=== PATIENT | male | born 1965 | race Caucasian/White ===

== ENCOUNTER 2017-07-04 14:34 | Emergency (ER) | payer MEDICARE, OTHER, MEDICAID ==
[2017-07-04 16:06] LABS: BASO # 0.1 10^3/uL (0.0-0.2); BASO % 0.5 % (0.0-1.0); EOS # 0.1 10^3/uL (0.0-0.50); EOS % 0.9 % (0.0-3.0); HEMATOCRIT 45.6 % (42.0-52.0); HEMOGLOBIN 15.7 g/dl (13.5-17.5); IMMATURE GRANULOCYTE % 0.2 % (0-3.0); LYMPH # 2.3 10^3/uL (1.5-4.5); LYMPH % 21.9 % (24.0-44.0); MEAN CORPUSCULAR HEMOGLOBIN 31.8 pg (27.0-33.0); MEAN CORPUSCULAR HGB CONC 34.4 g/dl (32.0-36.5); MEAN CORPUSCULAR VOLUME 92.3 fl (80.0-96.0); MONO # 0.8 10^3/uL (0.0-0.8); MONO % 7.7 % (0.0-5.0); NEUTROPHILS # 7.1 10^3/uL (1.8-7.7); NEUTROPHILS % 68.8 % (36.0-66.0); PLATELET COUNT, AUTOMATED 239 10^3/uL (150-450); RED BLOOD COUNT 4.94 10^6/uL (4.30-6.10); RED CELL DISTRIBUTION WIDTH 12.6 % (11.5-14.5); WHITE BLOOD COUNT 10.3 10^3/uL (4.0-10.0)
[2017-07-04] MEDS: KETOROLAC 30 MG/ML VIAL (J1885) IV ×3 (16:16)
[2017-07-04] MEDS: NS 1,000 ML IV ×3 (16:16)
[2017-07-04] MEDS: METOCLOPRAMIDE INJ 10MG/2ML VIAL (J2765) IV ×3 (16:16)
[2017-07-04] MEDS: diphenhydrAMINE INJ 50MG/ML VIAL (J1200) IV ×3 (16:16)
[2017-07-04 16:35] LABS: ANION GAP 6 MEQ/L (8-16); BLOOD UREA NITROGEN 10 MG/DL (7-18); CALCIUM LEVEL 9.4 MG/DL (8.5-10.1); CARBON DIOXIDE LEVEL 31 MEQ/L (21-32); CHLORIDE LEVEL 106 MEQ/L (98-107); CREATININE FOR GFR 1.05 MG/DL (0.70-1.30); GLOMERULAR FILTRATION RATE > 60.0 (>56); GLUCOSE, FASTING 94 MG/DL (70-100); POTASSIUM SERUM 4.7 MEQ/L (3.5-5.1); SODIUM LEVEL 143 MEQ/L (136-145); T UPTAKE 32 % (33-40); THYROID STIMULATING HORMONE 0.314 uIU/ML (0.358-3.740); THYROXINE (T4) 6.2 UG/DL (4.5-12.0)
== END 2017-07-04 18:13 | disposition home or self-care (01) ==
LOC: M ED 14:34
DX: R51 Headache (principal); F17.210 Nicotine dependence, cigarettes, uncomplicated; Z88.8 Allergy status to other drugs, medicaments and biological substances; Z79.899 Other long term (current) drug therapy
CPT/HCPCS: J1200

== ENCOUNTER → 2018-09-06 | Outpatient (REF) | payer MEDICARE, MEDICAID ==
[~2018-09-06] MED LIST: AMBI10TA OR; AMBI10TA PO; CELE40TA; CELE40TA OR; CLON1TAB8 PO; Celexa PO; KETO10TAB PO; KLON1TAB OR; OMEP20CA3; REGL10TA6 PO; REME45TA PO; SERO200T OR; SERO300T20 OR; SERO400T OR; TRAZ50TA; ZIPR80CAP OR; ZOLO50TA OR; ZYPR5TAB OR
[2018-09-06 13:58] LABS: ALBUMIN 3.5 GM/DL (3.2-5.2); ALT/SGPT 36 U/L (12-78); BILIRUBIN,TOTAL 0.3 MG/DL (0.2-1.0); BLOOD UREA NITROGEN 6 MG/DL (7-18); CARBON DIOXIDE LEVEL 26 MEQ/L (21-32); CHLORIDE LEVEL 110 MEQ/L (98-107); CHOLESTEROL LEVEL 177 MG/DL (<200); CHOLESTEROL RISK RATIO 4.425 (<5); CREATININE FOR GFR 1.02 MG/DL (0.70-1.30); GLOMERULAR FILTRATION RATE > 60.0 (>56); GLUCOSE, FASTING 106 MG/DL (70-100); HDL CHOLESTEROL 40 MG/DL (>40); LDL CHOLESTEROL 99 MG/DL (<100); NON-HDL-C 137 MG/DL; POTASSIUM SERUM 4.4 MEQ/L (3.5-5.1); SODIUM LEVEL 142 MEQ/L (136-145); THYROID STIMULATING HORMONE 0.799 uIU/ML (0.358-3.740); TOTAL PROTEIN 7.4 GM/DL (6.4-8.2); TRIGLYCERIDES LEVEL 190 MG/DL (<150)
== END ==
LOC: M LAB REF 13:05
PROVIDERS: ATTEND Family Medicine Addiction Medicine
DX: Z13.1 Encounter for screening for diabetes mellitus (principal); Z79.899 Other long term (current) drug therapy

== ENCOUNTER → 2018-10-12 | Outpatient (REF) | payer MEDICARE, MEDICAID ==
[~2018-10-12] MED LIST changes: -OMEP20CA3; +OMEP20CA4
[2018-10-12 18:51] LABS: APPEARANCE, URINE CLEAR (CLEAR); BACTERIA, URINE AUTO NEGATIVE (NEGATIVE); BILIRUBIN, URINE AUTO NEGATIVE (NEGATIVE); BLOOD, URINE BLOOD 1+ (NEGATIVE); COLOR, URINE YELLOW (YELLOW); GLUCOSE, URINE (UA) AUTO NEGATIVE (NEGATIVE); KETONE, URINE AUTO NEGATIVE (NEGATIVE); LEUKOCYTE ESTERASE, URINE AUTO 2+ (NEGATIVE); NITRITE, URINE AUTO NEGATIVE (NEGATIVE); PROTEIN, URINE AUTO NEGATIVE (NEGATIVE); RBC, URINE AUTO 4 /HPF (0-3); SQUAMOUS EPITHELIAL CELL UR AU 0 /HPF (0-6); UROBILINOGEN, URINE AUTO 0.2 mg/dL (0.0-2.0); WBC, URINE AUTO 4 /HPF (0-3)
== END ==
LOC: M LAB REF 16:30
PROVIDERS: ATTEND Family Medicine Addiction Medicine
DX: R33.8 Other retention of urine (principal)

== ENCOUNTER → 2018-12-09 | Outpatient (REF) | payer MEDICARE, MEDICAID ==
[2018-12-09 19:08] LABS: APPEARANCE, URINE CLEAR (CLEAR); BACTERIA, URINE AUTO NEGATIVE (NEGATIVE); BILIRUBIN, URINE AUTO NEGATIVE (NEGATIVE); BLOOD, URINE BLOOD 1+ (NEGATIVE); COLOR, URINE STRAW (YELLOW); GLUCOSE, URINE (UA) AUTO NEGATIVE (NEGATIVE); KETONE, URINE AUTO NEGATIVE (NEGATIVE); LEUKOCYTE ESTERASE, URINE AUTO NEGATIVE (NEGATIVE); NITRITE, URINE AUTO NEGATIVE (NEGATIVE); PROTEIN, URINE AUTO NEGATIVE (NEGATIVE); RBC, URINE AUTO 2 /HPF (0-3); SPECIFIC GRAVITY URINE AUTO 1.008 (1.002-1.035); SQUAMOUS EPITHELIAL CELL UR AU 0 /HPF (0-6); UROBILINOGEN, URINE AUTO 0.2 mg/dL (0.0-2.0); WBC, URINE AUTO 2 /HPF (0-3)
== END ==
LOC: M LAB REF 18:29
PROVIDERS: ATTEND Family Medicine Addiction Medicine
DX: R31.29 Other microscopic hematuria (principal)

== ENCOUNTER → 2018-12-23 | Outpatient (CLI) | payer MEDICARE, MEDICAID ==
--- NOTE | 2018-12-23 15:39 | REP ---
CT chest without contrast: Low-dose screening exam. History: Nicotine dependence. No comparison chest imaging. CT findings: There are multiple small posteriorly distributed pleural-based subcentimeter nodules consistent with pleural plaques bilaterally. The largest of these measures 5 mm. There is a 5.6 mm noncalcified pleural based nodule in the right middle lobe. There is a 4 mm ground-glass opacity in the right middle lobe. There is a peripheral 3 mm nodule in the right middle lobe. There is a 3 mm noncalcified nodule in the left lower lobe. No other nodules are appreciated. No infiltrate or mass lesion is observed. Impression: Lung RADS category II benign findings. Repeat screening chest CT study recommended 1 year. Electronically Signed by Ellis Garcia MD 12/23/2018 03:49 P
== END ==
LOC: M RAD 13:47
PROVIDERS: ATTEND Family Medicine Addiction Medicine
DX: Z12.2 Encounter for screening for malignant neoplasm of respiratory organs (principal); Z87.891 Personal history of nicotine dependence; R91.8 Other nonspecific abnormal finding of lung field

== ENCOUNTER → 2019-02-02 | Outpatient (CLI) | payer MEDICARE, MEDICAID ==
[2019-02-02 10:31] LABS: HEMATOCRIT 47.1 % (42.0-52.0); HEMOGLOBIN 15.8 g/dl (13.5-17.5); MEAN CORPUSCULAR HGB CONC 33.5 g/dl (32.0-36.5); MEAN CORPUSCULAR VOLUME 95.5 fl (80.0-96.0); PLATELET COUNT, AUTOMATED 246 10^3/uL (150-450); RED BLOOD COUNT 4.93 10^6/uL (4.30-6.10); WHITE BLOOD COUNT 17.3 10^3/uL (4.0-10.0)
[2019-02-02 10:55] LABS: AMPHETAMINES URINE REFLEX NEGATIVE (NEGATIVE); BARBITURATES URINE REFLEX NEGATIVE (NEGATIVE); BENZODIAZEPINES URINE REFLEX NEGATIVE (NEGATIVE); CANNABINOIDS URINE REFLEX NEGATIVE (NEGATIVE); COCAINE METABOLITE URINE REFLE NEGATIVE (NEGATIVE); METHADONE URINE REFLEX NEGATIVE (NEGATIVE); OPIATES URINE REFLEX NEGATIVE (NEGATIVE); PHENCYCLIDINE URINE REFLEX NEGATIVE (NEGATIVE)
[2019-02-02 11:03] LABS: ALBUMIN 3.8 GM/DL (3.2-5.2); ALT/SGPT 51 U/L (12-78); BILIRUBIN,TOTAL 0.3 MG/DL (0.2-1.0); BLOOD UREA NITROGEN 9 MG/DL (7-18); CALCIUM LEVEL 9.2 MG/DL (8.5-10.1); CARBON DIOXIDE LEVEL 23 MEQ/L (21-32); CHLORIDE LEVEL 109 MEQ/L (98-107); CHOLESTEROL LEVEL 231 MG/DL (<200); CREATININE FOR GFR 1.06 MG/DL (0.70-1.30); FREE T4 0.71 NG/DL (0.76-1.46); GLOMERULAR FILTRATION RATE > 60.0 (>56); GLUCOSE, FASTING 107 MG/DL (70-100); HDL CHOLESTEROL 42 MG/DL (>40); LDL CHOLESTEROL 146 MG/DL (<100); NON-HDL-C 189 MG/DL; POTASSIUM SERUM 4.1 MEQ/L (3.5-5.1); SODIUM LEVEL 142 MEQ/L (136-145); TOTAL PROTEIN 7.7 GM/DL (6.4-8.2); TRIGLYCERIDES LEVEL 216 MG/DL (<150)
[2019-02-02 11:05] LABS: PROLACTIN 20.1 NG/ML (2.1-17.7)
== END ==
LOC: M LAB 08:44
PROVIDERS: ATTEND Nurse Practitioner Psychiatric/Mental Health
DX: F20.9 Schizophrenia, unspecified (principal)
CPT/HCPCS: 36415; 80053; 80061; 80307; 83036; 84146; 84439; 84443; 85027; G0480

== ENCOUNTER → 2019-08-11 | Outpatient (REF) | payer MEDICARE, MEDICAID ==
[~2019-08-11] MED LIST changes: +OMEP1CAP73; -OMEP20CA4
[2019-08-11 14:04] LABS: BASO # 0.1 10^3/uL (0.0-0.2); BASO % 0.3 % (0.0-1.0); EOS # 0.2 10^3/uL (0.0-0.5); EOS % 1.2 % (0.0-3.0); HEMATOCRIT 48.8 % (42.0-52.0); HEMOGLOBIN 16.2 g/dl (13.5-17.5); LYMPH # 3.6 10^3/uL (1.5-5.0); LYMPH % 22.4 % (24.0-44.0); MEAN CORPUSCULAR HEMOGLOBIN 31.3 pg (27.0-33.0); MEAN CORPUSCULAR HGB CONC 33.2 g/dl (32.0-36.5); MEAN CORPUSCULAR VOLUME 94.2 fl (80.0-96.0); MONO # 1.5 10^3/uL (0.0-0.8); MONO % 9.1 % (0.0-5.0); NEUTROPHILS # 10.7 10^3/uL (1.5-8.5); NEUTROPHILS % 66.1 % (36.0-66.0); PLATELET COUNT, AUTOMATED 265 10^3/uL (150-450); RED BLOOD COUNT 5.18 10^6/uL (4.30-6.10); WHITE BLOOD COUNT 16.1 10^3/uL (4.0-10.0)
[2019-08-11 14:16] LABS: ALBUMIN 3.9 GM/DL (3.2-5.2); ALT/SGPT 29 U/L (12-78); BILIRUBIN,TOTAL 0.5 MG/DL (0.2-1.0); BLOOD UREA NITROGEN 12 MG/DL (7-18); CALCIUM LEVEL 9.1 MG/DL (8.5-10.1); CARBON DIOXIDE LEVEL 25 MEQ/L (21-32); CHLORIDE LEVEL 105 MEQ/L (98-107); CHOLESTEROL LEVEL 226 MG/DL (<200); CREATININE FOR GFR 0.86 MG/DL (0.70-1.30); FOLATE 5.3 NG/ML; FREE T4 1.02 NG/DL (0.76-1.46); GLOMERULAR FILTRATION RATE > 60.0 (>56); GLUCOSE, FASTING 102 MG/DL (70-100); HDL CHOLESTEROL 31 MG/DL (>40); LDL CHOLESTEROL 158 MG/DL (<100); NON-HDL-C 195 MG/DL; POTASSIUM SERUM 4.2 MEQ/L (3.5-5.1); SODIUM LEVEL 136 MEQ/L (136-145); THYROID STIMULATING HORMONE 0.713 uIU/ML (0.358-3.740); TOTAL 25(OH) VITAMIN D 24.6 NG/ML (30.0-100.0); TOTAL PROTEIN 7.9 GM/DL (6.4-8.2); TRIGLYCERIDES LEVEL 184 MG/DL (<150); VITAMIN B12 LEVEL 581 PG/ML
== END ==
LOC: M LAB REF 12:50
PROVIDERS: ATTEND Nurse Practitioner Family
DX: R21 Rash and other nonspecific skin eruption (principal); R12 Heartburn; I10 Essential (primary) hypertension; R73.9 Hyperglycemia, unspecified; Z13.9 Encounter for screening, unspecified; F17.200 Nicotine dependence, unspecified, uncomplicated

== ENCOUNTER → 2019-10-31 | Outpatient (REF) | payer MEDICARE, MEDICAID ==
[2019-12-17 23:07] LABS: BASO # 0.1 10^3/uL (0.0-0.2); BASO % 0.6 % (0.0-1.0); EOS # 0.2 10^3/uL (0.0-0.5); EOS % 1.7 % (0.0-3.0); HEMATOCRIT 47.7 % (42.0-52.0); HEMOGLOBIN 16.3 g/dl (13.5-17.5); LYMPH # 3.8 10^3/uL (1.5-5.0); LYMPH % 28.1 % (24.0-44.0); MEAN CORPUSCULAR HEMOGLOBIN 32.1 pg (27.0-33.0); MEAN CORPUSCULAR HGB CONC 34.2 g/dl (32.0-36.5); MEAN CORPUSCULAR VOLUME 93.9 fl (80.0-96.0); MONO # 1.1 10^3/uL (0.0-0.8); MONO % 8.5 % (0.0-5.0); NEUTROPHILS # 8.1 10^3/uL (1.5-8.5); NEUTROPHILS % 60.5 % (36.0-66.0); PLATELET COUNT, AUTOMATED 269 10^3/uL (150-450); RED BLOOD COUNT 5.08 10^6/uL (4.30-6.10); WHITE BLOOD COUNT 13.4 10^3/uL (4.0-10.0)
[2019-12-26 21:25] LABS: HEMOGLOBIN A1c 5.8 %
[2019-12-27 00:42] LABS: ALBUMIN 3.9 GM/DL (3.2-5.2); ALT/SGPT 33 U/L (12-78); BILIRUBIN,TOTAL 0.3 MG/DL (0.2-1.0); BLOOD UREA NITROGEN 9 MG/DL (7-18); CALCIUM LEVEL 9.2 MG/DL (8.5-10.1); CARBON DIOXIDE LEVEL 26 MEQ/L (21-32); CHLORIDE LEVEL 107 MEQ/L (98-107); CHOLESTEROL LEVEL 193 MG/DL (<200); CHOLESTEROL RISK RATIO 5.361 (<5); CREATININE FOR GFR 0.97 MG/DL (0.70-1.30); GLOMERULAR FILTRATION RATE > 60.0 (>56); GLUCOSE, FASTING 105 MG/DL (70-100); HDL CHOLESTEROL 36 MG/DL (>40); LDL CHOLESTEROL 117 MG/DL (<100); NON-HDL-C 157 MG/DL; POTASSIUM SERUM 4.1 MEQ/L (3.5-5.1); SODIUM LEVEL 138 MEQ/L (136-145); TOTAL PROTEIN 7.6 GM/DL (6.4-8.2); TRIGLYCERIDES LEVEL 198 MG/DL (<150)
== END ==
LOC: M LAB REF 13:18
PROVIDERS: ATTEND Nurse Practitioner Family
DX: E78.5 Hyperlipidemia, unspecified (principal); R73.03 Prediabetes; K59.00 Constipation, unspecified; D72.829 Elevated white blood cell count, unspecified; I10 Essential (primary) hypertension; R73.9 Hyperglycemia, unspecified; Z13.9 Encounter for screening, unspecified

== ENCOUNTER → 2020-04-11 | Outpatient (REF) | payer MEDICARE, MEDICAID ==
[2020-04-11 12:50] LABS: BASO # 0.1 10^3/uL (0.0-0.2); BASO % 0.6 % (0.0-1.0); EOS # 0.2 10^3/uL (0.0-0.5); EOS % 2.1 % (0.0-3.0); HEMOGLOBIN 16.1 g/dl (13.5-17.5); LYMPH # 3.6 10^3/uL (1.5-5.0); LYMPH % 33.8 % (24.0-44.0); MEAN CORPUSCULAR HEMOGLOBIN 31.1 pg (27.0-33.0); MEAN CORPUSCULAR HGB CONC 33.5 g/dl (32.0-36.5); MEAN CORPUSCULAR VOLUME 92.8 fl (80.0-96.0); MONO # 1.2 10^3/uL (0.0-0.8); MONO % 10.8 % (0.0-5.0); NEUTROPHILS # 5.6 10^3/uL (1.5-8.5); NEUTROPHILS % 52.3 % (36.0-66.0); PLATELET COUNT, AUTOMATED 263 10^3/uL (150-450); RED BLOOD COUNT 5.17 10^6/uL (4.30-6.10); WHITE BLOOD COUNT 10.6 10^3/uL (4.0-10.0)
[2020-04-11 13:16] LABS: ALBUMIN 3.9 GM/DL (3.2-5.2); ALT/SGPT 26 U/L (12-78); BILIRUBIN,TOTAL 0.2 MG/DL (0.2-1.0); BLOOD UREA NITROGEN 14 MG/DL (7-18); CALCIUM LEVEL 9.8 MG/DL (8.5-10.1); CARBON DIOXIDE LEVEL 26 MEQ/L (21-32); CHLORIDE LEVEL 104 MEQ/L (98-107); CHOLESTEROL LEVEL 223 MG/DL (<200); CHOLESTEROL RISK RATIO 6.968 (<5); CREATININE FOR GFR 0.95 MG/DL (0.70-1.30); GLOMERULAR FILTRATION RATE > 60.0 (>56); GLUCOSE, FASTING 106 MG/DL (70-100); HDL CHOLESTEROL 32 MG/DL (>40); LDL CHOLESTEROL 146 MG/DL (<100); NON-HDL-C 191 MG/DL; POTASSIUM SERUM 4.5 MEQ/L (3.5-5.1); SODIUM LEVEL 138 MEQ/L (136-145); TOTAL PROTEIN 7.4 GM/DL (6.4-8.2); TRIGLYCERIDES LEVEL 226 MG/DL (<150)
[2020-04-11 13:24] LABS: TOTAL 25(OH) VITAMIN D 36.6 NG/ML (30.0-100.0)
[2020-04-11 13:34] LABS: HEMOGLOBIN A1c 5.4 %
== END ==
LOC: M LAB REF 12:16
PROVIDERS: ATTEND Nurse Practitioner Family
DX: E78.5 Hyperlipidemia, unspecified (principal); R73.03 Prediabetes; K59.00 Constipation, unspecified; I10 Essential (primary) hypertension; F17.200 Nicotine dependence, unspecified, uncomplicated; Z13.9 Encounter for screening, unspecified

== ENCOUNTER → 2020-10-01 | Outpatient (CLI) | payer MEDICARE, MEDICAID ==
--- NOTE | 2020-10-01 15:44 | REP ---
INDICATION: NICOTINE DEPENDENCE. COMPARISON: 12/23/2018 TECHNIQUE: Noncontrast low-dose screening CT protocol FINDINGS: There is a small pleural based 5 mm nodule on image 38 in the superior segment of the right lower lobe mid clavicular line, this is unchanged. There is a 4 mm nodule medial basal segment right lower lobe on image 59, unchanged. In the anterior axillary line right upper lobe there is a 4 mm nodule on image 50 and there is another 3 mm nodule in the mid axillary line on image 40 on unchanged. Few tiny subpleural nodules posterior basal segment the left lower lobe. These are also stable. There is some mild cylindrical bronchiectasis. No pleural effusion, pleural calcifications, mass or acute infiltrate. No pneumothorax or pneumomediastinum. No other significant or new findings. IMPRESSION: 1. Lung RADS category 2 benign, benign findings. Stable. Multiple small nodules unchanged from previous study. With this category of findings the probability of malignancy is less than 1%. In patients with high risk for development of lung malignancy, annual low-dose screening CT may be recommended. <Electronically signed by Rasheed Stern > 10/01/20 [id number]
== END ==
LOC: M RAD 13:25
PROVIDERS: ATTEND Nurse Practitioner Family
DX: Z12.2 Encounter for screening for malignant neoplasm of respiratory organs (principal); F17.210 Nicotine dependence, cigarettes, uncomplicated; R91.8 Other nonspecific abnormal finding of lung field; J47.9 Bronchiectasis, uncomplicated

== ENCOUNTER → 2021-11-04 | Outpatient (CLI) | payer MEDICARE, MEDICAID ==
[~2021-11-04] MED LIST changes: +AMLO10TA PO; +ATOR40TA75 PO; +BUSP10TA PO; +FLOM0.4C39 PO; +MIRT1TAB16 PO; +QUET300T2 PO
== END ==
LOC: M RAD 09:00
PROVIDERS: ATTEND Nurse Practitioner Family
DX: Z12.2 Encounter for screening for malignant neoplasm of respiratory organs (principal); F17.200 Nicotine dependence, unspecified, uncomplicated; R91.8 Other nonspecific abnormal finding of lung field

== ENCOUNTER → 2022-01-10 | Outpatient (CLI) | payer MEDICARE, MEDICAID | LOC: M RAD 07:31 | PROVIDERS: ATTEND Nurse Practitioner Family | DX: Z12.2 Encounter for screening for malignant neoplasm of respiratory organs (principal); Z87.891 Personal history of nicotine dependence ==

== ENCOUNTER → 2022-02-13 | Outpatient (REF) | payer MEDICARE, MEDICAID ==
[2022-02-13 14:47] LABS: BASO # 0.1 10^3/uL (0.0-0.2); BASO % 0.5 % (0.0-1.0); EOS # 0.1 10^3/uL (0.0-0.5); EOS % 0.9 % (0.0-3.0); HEMATOCRIT 48.3 % (42.0-52.0); LYMPH # 2.2 10^3/uL (1.5-5.0); LYMPH % 16.2 % (24.0-44.0); MEAN CORPUSCULAR HEMOGLOBIN 32.3 pg (27.0-33.0); MEAN CORPUSCULAR HGB CONC 33.1 g/dl (32.0-36.5); MEAN CORPUSCULAR VOLUME 97.4 fl (80.0-96.0); NEUTROPHILS # 9.6 10^3/uL (1.5-8.5); NEUTROPHILS % 69.4 % (36.0-66.0); PLATELET COUNT, AUTOMATED 235 10^3/uL (150-450); RED BLOOD COUNT 4.96 10^6/uL (4.30-6.10); WHITE BLOOD COUNT 13.8 10^3/uL (4.0-10.0)
[2022-02-13 14:57] LABS: TOTAL 25(OH) VITAMIN D 48.8 NG/ML (20.0-100.0)
[2022-02-13 14:58] LABS: THYROID STIMULATING HORMONE 0.555 uIU/ML (0.55-4.78)
[2022-02-13 15:04] LABS: ALBUMIN 4.3 G/DL (3.2-5.2); ALKALINE PHOSPHATASE 118 U/L (46-116); ALT/SGPT 21 U/L (7.0-40); AST/SGOT 17 U/L (<34); BILIRUBIN,TOTAL 0.2 MG/DL (0.3-1.2); BLOOD UREA NITROGEN 14 MG/DL (9-23); CALCIUM LEVEL 9.9 MG/DL (8.5-10.1); CARBON DIOXIDE LEVEL 24 MMOL/L (20-31); CHLORIDE LEVEL 104 MMOL/L (98-107); CHOLESTEROL LEVEL 128 MG/DL (<200); CHOLESTEROL RISK RATIO 3.91 (<5); GLOMERULAR FILTRATION RATE > 60.0 (>56); GLUCOSE, FASTING 115 MG/DL (60-100); HDL CHOLESTEROL 32.7 MG/DL (>40); LDL CHOLESTEROL 28.5 MG/DL (<100); NON-HDL-C 95 MG/DL; POTASSIUM SERUM 4.2 MMOL/L (3.5-5.1); SODIUM LEVEL 139 MMOL/L (136-145); TOTAL PROTEIN 7.8 G/DL (5.7-8.2); TRIGLYCERIDES LEVEL 334 MG/DL (<150)
[2022-02-13 15:08] LABS: HEMOGLOBIN A1c 5.3 % (4.0-6.0)
[2022-02-13 17:06] LABS: MONO # 1.7 10^3/uL (0.0-0.8)
[2022-02-13 17:07] LABS: MONO % 12.4 % (2.0-8.0)
== END ==
LOC: M LAB REF 13:03
PROVIDERS: ATTEND Nurse Practitioner Family
DX: E66.3 Overweight (principal)

== ENCOUNTER → 2022-06-18 | Outpatient (REF) | payer MEDICARE, MEDICAID ==
[2022-06-18 15:13] LABS: CHOLESTEROL RISK RATIO 3.3 (<5); LDL CHOLESTEROL 39.8 MG/DL (<100)
== END ==
LOC: M LAB REF 12:47
PROVIDERS: ATTEND Nurse Practitioner Family
DX: E78.5 Hyperlipidemia, unspecified (principal)

== ENCOUNTER → 2022-11-03 | Outpatient (REF) | payer MEDICARE, MEDICAID ==
[2022-11-03 12:29] LABS: CHOLESTEROL RISK RATIO 3.93 (<5); HDL CHOLESTEROL 34.6 MG/DL (>40); LDL CHOLESTEROL 48.8 MG/DL (<100); NON-HDL-C 101.4 MG/DL
== END ==
LOC: M LAB REF 11:20
PROVIDERS: ATTEND Nurse Practitioner Family
DX: E78.5 Hyperlipidemia, unspecified (principal)

== ENCOUNTER 2022-11-23 15:33 | Emergency (ER) | payer MEDICARE, MEDICAID ==
[~2022-11-23] VITALS: Ht 172.7 cm; Wt 72.0 kg
[2022-11-23] MEDS ORDERED: INVE1.31 (15:50)
[2022-11-23] MEDS ORDERED: PRAZ2CAP (15:50)
[2022-11-23] MEDS ORDERED: LIDOCAINE 2% 5ML JELLY UROJET TOP ONE (16:25)
[2022-11-23 18:13] VITALS: BP 128/78; TEMP 98.4; O2SAT 95
== END 2022-11-23 18:29 | disposition home or self-care (01) ==
LOC: M ED 15:33
DX: N40.1 Benign prostatic hyperplasia with lower urinary tract symptoms (principal); R33.9 Retention of urine, unspecified; R19.7 Diarrhea, unspecified; I10 Essential (primary) hypertension; E78.5 Hyperlipidemia, unspecified; K21.9 Gastro-esophageal reflux disease without esophagitis; K46.9 Unspecified abdominal hernia without obstruction or gangrene; F17.210 Nicotine dependence, cigarettes, uncomplicated; F12.10 Cannabis abuse, uncomplicated; Z88.8 Allergy status to other drugs, medicaments and biological substances; Z79.899 Other long term (current) drug therapy

== ENCOUNTER 2023-01-05 12:18 | Emergency (ER) | payer MEDICARE, MEDICAID ==
[~2023-01-05] VITALS: Ht 172.7 cm; Wt 71.5 kg
[~2023-01-05 12:18] MED LIST changes: +INVE1.31; +PRAZ2CAP
[2023-01-05 12:20] VITALS: TEMP 99.5
[2023-01-05 14:20] LABS: VENOUS BASE EXCESS -3.7 (-2.0-2.0); VENOUS HCO3 21.6 MMOL/L (23.0-27.0); VENOUS O2 SATURATION 71.9 % (60.0-80.0); VENOUS PARTIAL PRESSURE CO2 40.2 mmHg (38.0-50.0); VENOUS PARTIAL PRESSURE O2 34.5 mmHg (30.0-50.0); VENOUS PH 7.349 UNITS (7.330-7.430); VENOUS STANDARD HCO3 20.8 MMOL/L; VENOUS TOTAL CO2 22.9 MMOL/L (24.0-28.0)
[2023-01-05] MEDS ORDERED: methylPREDNISolone 125MG 2ML VIAL IV ONE (14:20)
[2023-01-05] MEDS ORDERED: IPRATROPIUM 0.5MG/ALBUTEROL 2.5MG INH SOL UD 3ML (DUONEB) NEB ONE (14:20)
[2023-01-05 14:22] LABS: BASO # 0.1 10^3/uL (0.0-0.2); BASO % 0.5 % (0.0-1.0); EOS # 0.2 10^3/uL (0.0-0.5); EOS % 0.9 % (0.0-3.0); HEMATOCRIT 42.5 % (42.0-52.0); HEMOGLOBIN 14.3 g/dl (13.5-17.5); LYMPH # 2.2 10^3/uL (1.5-5.0); LYMPH % 10.9 % (24.0-44.0); MEAN CORPUSCULAR HEMOGLOBIN 32.2 pg (27.0-33.0); MEAN CORPUSCULAR HGB CONC 33.6 g/dl (32.0-36.5); MEAN CORPUSCULAR VOLUME 95.7 fl (80.0-96.0); MONO % 9.3 % (2.0-8.0); NEUTROPHILS # 15.6 10^3/uL (1.5-8.5); NEUTROPHILS % 77.9 % (36.0-66.0); PLATELET COUNT, AUTOMATED 240 10^3/uL (150-450); RED BLOOD COUNT 4.44 10^6/uL (4.30-6.10)
[2023-01-05 14:31] LABS: INR 1.11
[2023-01-05 14:48] LABS: MONO # 1.9 10^3/uL (0.0-0.8)
[2023-01-05 14:57] LABS: RSV AMPLIFICATION NEGATIVE (NEGATIVE)
[2023-01-05] MEDS ORDERED: ISOVUE-370 76% 100ML VIAL As Ordered ONE (16:38)
[2023-01-05] MEDS ORDERED: PRED20TA PO (18:44)
[2023-01-05] MEDS ORDERED: ALBU6.7H6 INH (18:44)
[2023-01-05] MEDS ORDERED: AZIT500T5 PO (18:44)
[2023-01-05 19:17] VITALS: BP 146/80; O2SAT 96
[2023-01-05 22:28] LABS: ALBUMIN 3.7 G/DL (3.2-5.2); ALKALINE PHOSPHATASE 123 U/L (46-116); ALT/SGPT 14 U/L (7.0-40); AST/SGOT 15 U/L (<34); BILIRUBIN,DIRECT 0.2 MG/DL (<0.4); BILIRUBIN,TOTAL 0.3 MG/DL (0.3-1.2); BLOOD UREA NITROGEN 11 MG/DL (9-23); CALCIUM LEVEL 8.9 MG/DL (8.5-10.1); CARBON DIOXIDE LEVEL 23 MMOL/L (20-31); CHLORIDE LEVEL 103 MMOL/L (98-107); CREATININE FOR GFR 0.75 MG/DL (0.70-1.30); GLOMERULAR FILTRATION RATE > 60.0 (>56); GLUCOSE, FASTING 95 MG/DL (60-100); SODIUM LEVEL 141 MMOL/L (136-145); TOTAL PROTEIN 7.3 G/DL (5.7-8.2)
[2023-01-05 22:31] LABS: THYROID STIMULATING HORMONE 0.575 uIU/ML (0.55-4.78)
[2023-01-05 22:35] LABS: PROCALCITONIN 0.04 ng/ml
== END 2023-01-05 19:18 | disposition home or self-care (01) ==
LOC: M ED 12:18
DX: J44.1 Chronic obstructive pulmonary disease with (acute) exacerbation (principal); I10 Essential (primary) hypertension; K21.9 Gastro-esophageal reflux disease without esophagitis; E78.5 Hyperlipidemia, unspecified; F32.A Depression, unspecified; F41.9 Anxiety disorder, unspecified; F17.200 Nicotine dependence, unspecified, uncomplicated; Z88.8 Allergy status to other drugs, medicaments and biological substances; Z79.52 Long term (current) use of systemic steroids; Z79.83 Long term (current) use of bisphosphonates; Z79.02 Long term (current) use of antithrombotics/antiplatelets; Z79.899 Other long term (current) drug therapy
CPT/HCPCS: 71045; 71275; 80047; 80048; 80076; 82803; 83605; 83880; 84145; 84443; 84484; 85025; 85610; 87040; 87631; 93005; 93041; 94640; 94760; 96374; 99285; J2930; Q9967

== ENCOUNTER → 2023-02-18 | Outpatient (REF) | payer MEDICARE, MEDICAID ==
[~2023-02-18] MED LIST changes: +ALBU6.7H6 INH; +AZIT500T5 PO; +PRED20TA PO
[2023-02-18 13:37] LABS: CHOLESTEROL RISK RATIO 3.21 (<5); HDL CHOLESTEROL 36.4 MG/DL (>40); LDL CHOLESTEROL 41.4 MG/DL (<100); NON-HDL-C 80.6 MG/DL
== END ==
LOC: M LAB REF 12:09
PROVIDERS: ATTEND Nurse Practitioner Family
DX: E78.5 Hyperlipidemia, unspecified (principal)

== ENCOUNTER → 2023-03-26 | Outpatient (CLI) | payer MEDICARE, MEDICAID | LOC: M RAD 07:40 | PROVIDERS: ATTEND Nurse Practitioner Family | DX: Z12.2 Encounter for screening for malignant neoplasm of respiratory organs (principal); F17.210 Nicotine dependence, cigarettes, uncomplicated; R91.8 Other nonspecific abnormal finding of lung field ==

== ENCOUNTER 2023-04-04 11:22 | Emergency (ER) | payer MEDICARE, MEDICAID ==
[~2023-04-04] VITALS: Ht 172.7 cm; Wt 70.4 kg
[2023-04-04 11:22] VITALS: BP 148/85; TEMP 98.6; O2SAT 97
[2023-04-04] MEDS ORDERED: BACITRACIN OINTMENT 30GM TUBE TOP ONE (11:55)
== END 2023-04-04 12:26 | disposition home or self-care (01) ==
LOC: M ED 11:22
DX: S61.200A Unspecified open wound of right index finger without damage to nail, initial encounter (principal); L20.9 Atopic dermatitis, unspecified; J44.9 Chronic obstructive pulmonary disease, unspecified; E78.5 Hyperlipidemia, unspecified; I10 Essential (primary) hypertension; F17.200 Nicotine dependence, unspecified, uncomplicated; Z88.8 Allergy status to other drugs, medicaments and biological substances; Y92.9 Unspecified place or not applicable; Y93.9 Activity, unspecified; Y99.9 Unspecified external cause status; Z79.52 Long term (current) use of systemic steroids; Z79.02 Long term (current) use of antithrombotics/antiplatelets; Z79.83 Long term (current) use of bisphosphonates; Z79.899 Other long term (current) drug therapy

== ENCOUNTER → 2023-07-08 | Outpatient (REF) | payer MEDICARE, MEDICAID ==
[2023-07-08 13:39] LABS: BASO # 0.1 10^3/uL (0.0-0.2); BASO % 0.4 % (0.0-1.0); EOS # 0.1 10^3/uL (0.0-0.5); EOS % 0.7 % (0.0-3.0); HEMOGLOBIN 15.3 g/dl (13.5-17.5); LYMPH # 3.5 10^3/uL (1.5-5.0); LYMPH % 17.5 % (24.0-44.0); MEAN CORPUSCULAR HEMOGLOBIN 33.4 pg (27.0-33.0); MEAN CORPUSCULAR VOLUME 98.3 fl (80.0-96.0); MONO # 1.7 10^3/uL (0.0-0.8); MONO % 8.4 % (2.0-8.0); NEUTROPHILS # 14.3 10^3/uL (1.5-8.5); NEUTROPHILS % 72.5 % (36.0-66.0); PLATELET COUNT, AUTOMATED 220 10^3/uL (150-450); RED BLOOD COUNT 4.58 10^6/uL (4.30-6.10); WHITE BLOOD COUNT 19.7 10^3/uL (4.0-10.0)
[2023-07-08 13:48] LABS: HEMOGLOBIN A1c 5.2 % (4.0-6.0)
[2023-07-08 13:49] LABS: ALKALINE PHOSPHATASE 102 U/L (46-116); ALT/SGPT 10 U/L (7.0-40); AST/SGOT 10 U/L (<34); BILIRUBIN,TOTAL 0.2 MG/DL (0.3-1.2); BLOOD UREA NITROGEN 17 MG/DL (9-23); CALCIUM LEVEL 9.6 MG/DL (8.5-10.1); CARBON DIOXIDE LEVEL 25 MMOL/L (20-31); CHLORIDE LEVEL 106 MMOL/L (98-107); CHOLESTEROL LEVEL 136 MG/DL (<200); CHOLESTEROL RISK RATIO 3.43 (<5); CREATININE FOR GFR 0.81 MG/DL (0.70-1.30); GLOMERULAR FILTRATION RATE > 60.0 (>56); GLUCOSE, FASTING 98 MG/DL (60-100); HDL CHOLESTEROL 39.6 MG/DL (>40); NON-HDL-C 96.4 MG/DL; POTASSIUM SERUM 4.3 MMOL/L (3.5-5.1); SODIUM LEVEL 139 MMOL/L (136-145); THYROID STIMULATING HORMONE 1.002 uIU/ML (0.55-4.78); TOTAL 25(OH) VITAMIN D 48.7 NG/ML (20.0-100.0); TOTAL PROTEIN 7.1 G/DL (5.7-8.2); TRIGLYCERIDES LEVEL 132 MG/DL (<150)
== END ==
LOC: M LAB REF 12:45
PROVIDERS: ATTEND Nurse Practitioner Family
DX: Z00.00 Encounter for general adult medical examination without abnormal findings (principal); E55.9 Vitamin D deficiency, unspecified; Z79.899 Other long term (current) drug therapy

== ENCOUNTER → 2023-07-15 | Outpatient (REF) | payer MEDICARE, MEDICAID | LOC: M LAB REF 12:42 | PROVIDERS: ATTEND Nurse Practitioner Family | DX: Z11.3 Encounter for screening for infections with a predominantly sexual mode of transmission (principal) ==

== ENCOUNTER → 2024-07-15 | Outpatient (REF) | payer MEDICARE, MEDICAID ==
[~2024-07-15] MED LIST changes: -AMBI10TA PO; +AMLO-751 PO; -AMLO10TA PO; -FLOM0.4C39 PO; +TAMS-18 PO; +ZOLP-533 PO
[2024-07-15 18:46] LABS: ALBUMIN 4.1 G/DL (3.2-5.2); ALKALINE PHOSPHATASE 95 U/L (40-129); ALT/SGPT 11 U/L (7.0-40); AST/SGOT 15 U/L (<34); BILIRUBIN,TOTAL 0.2 MG/DL (0.3-1.2); BLOOD UREA NITROGEN 18 MG/DL (9-23); CALCIUM LEVEL 9.6 MG/DL (8.3-10.6); CARBON DIOXIDE LEVEL 24 MMOL/L (20-31); CHLORIDE LEVEL 111 MMOL/L (98-107); CHOLESTEROL LEVEL 114 MG/DL (<200); CHOLESTEROL RISK RATIO 3.08 (<5); CREATININE FOR GFR 0.88 MG/DL (0.70-1.30); GLOMERULAR FILTRATION RATE > 90.0 (>49); GLUCOSE, FASTING 97 MG/DL (74-106); HDL CHOLESTEROL 36.9 MG/DL (>40); LDL CHOLESTEROL 52.3 MG/DL (<100); MAGNESIUM LEVEL 2.2 MG/DL (1.8-2.4); NON-HDL-C 77.1 MG/DL; POTASSIUM SERUM 4.1 MMOL/L (3.5-5.1); SODIUM LEVEL 142 MMOL/L (136-145); TOTAL PROTEIN 7.5 G/DL (5.7-8.2); TRIGLYCERIDES LEVEL 124 MG/DL (<150)
[2024-07-15 18:50] LABS: BASO # 0.1 10^3/uL (0.0-0.2); BASO % 0.3 % (0.0-1.0); EOS # 0.1 10^3/uL (0.0-0.5); EOS % 0.8 % (0.0-3.0); HEMATOCRIT 42.8 % (42.0-52.0); HEMOGLOBIN 14.6 g/dl (13.5-17.5); LYMPH # 3.3 10^3/uL (1.5-5.0); LYMPH % 18.2 % (24.0-44.0); MEAN CORPUSCULAR HGB CONC 34.1 g/dl (32.0-36.5); MEAN CORPUSCULAR VOLUME 96.6 fl (80.0-96.0); MONO # 1.3 10^3/uL (0.0-0.8); MONO % 6.9 % (2.0-8.0); NEUTROPHILS # 13.4 10^3/uL (1.5-8.5); NEUTROPHILS % 73.3 % (36.0-66.0); PLATELET COUNT, AUTOMATED 305 10^3/uL (150-450); RED BLOOD COUNT 4.43 10^6/uL (4.30-6.10); WHITE BLOOD COUNT 18.2 10^3/uL (4.0-10.0)
[2024-07-18 12:46] LABS: PSA FREE 1.4 ng/mL
== END ==
LOC: M LAB REF 17:42
PROVIDERS: ATTEND Nurse Practitioner Family
DX: G44.029 Chronic cluster headache, not intractable (principal); D72.829 Elevated white blood cell count, unspecified; E78.5 Hyperlipidemia, unspecified; R97.20 Elevated prostate specific antigen [PSA]

== ENCOUNTER → 2024-11-15 | Outpatient (REF) | payer MEDICARE, MEDICAID ==
[2024-11-15 12:39] LABS: BASO # 0.1 10^3/uL (0.0-0.2); BASO % 0.5 % (0.0-1.0); EOS # 0.1 10^3/uL (0.0-0.5); EOS % 0.7 % (0.0-3.0); LYMPH # 2.1 10^3/uL (1.5-5.0); LYMPH % 21.7 % (24.0-44.0); MONO # 1.3 10^3/uL (0.0-0.8); MONO % 13.6 % (2.0-8.0); NEUTROPHILS # 6.1 10^3/uL (1.5-8.5); NEUTROPHILS % 63.2 % (36.0-66.0); PLATELET COUNT, AUTOMATED 226 10^3/uL (150-450)
[2024-11-15 12:48] LABS: ALT/SGPT 12 U/L (7.0-40); AST/SGOT 15 U/L (<34); CALCIUM LEVEL 9.9 MG/DL (8.3-10.6); CARBON DIOXIDE LEVEL 26 MMOL/L (20-31); CHLORIDE LEVEL 108 MMOL/L (98-107); CHOLESTEROL LEVEL 119 MG/DL (<200); CHOLESTEROL RISK RATIO 2.81 (<5); CREATININE FOR GFR 0.85 MG/DL (0.70-1.30); GLOMERULAR FILTRATION RATE > 90.0 (>49); LDL CHOLESTEROL 39.7 MG/DL (<100); NON-HDL-C 76.7 MG/DL; POTASSIUM SERUM 4.6 MMOL/L (3.5-5.1); SODIUM LEVEL 143 MMOL/L (136-145); TRIGLYCERIDES LEVEL 185 MG/DL (<150)
[2024-11-15 13:19] LABS: ESTIMATED AVERAGE GLUCOSE 114.0 MG/DL (60-110)
== END ==
LOC: M LAB REF 11:54
PROVIDERS: ATTEND Nurse Practitioner Family
DX: E78.5 Hyperlipidemia, unspecified (principal); R63.4 Abnormal weight loss; Z79.899 Other long term (current) drug therapy